=== PATIENT | male | born 1995 | race Caucasian/White ===

== ENCOUNTER 2017-06-11 21:50 | Emergency (ER) | payer OTHER ==
[~2017-06-11] VITALS: Ht 182.9 cm; Wt 102.9 kg
[2017-06-11] MEDS ORDERED: ONDANSETRON 2MG/ML, 2ML IVPush ONE (22:30)
[2017-06-11] MEDS ORDERED: SODIUM CHLORIDE 0.9% 1,000ML IVBOLUS ONE (22:30)
[2017-06-11] MEDS ORDERED: PLEASE ENTER ALLERGIES MC SCH ×2 (22:30)
[2017-06-11 22:55] LABS: HEMATOCRIT 50.8 % (39.2-51.8); HEMOGLOBIN 17.3 g/dL (13.7-18.0); WHITE BLOOD COUNT 20.6 x10^3/uL (3.4-10)
[2017-06-11 23:04] LABS: ASPARTATE AMINO TRANSFERASE 27 U/L (15-37); BLOOD UREA NITROGEN 16 mg/dL (7-18)
[2017-06-11 23:12] LABS: DIFF TOTAL CELLS COUNTED 100 CELL DIFF
[2017-06-11 23:13] LABS: VERIFY COUNTS? YES
[2017-06-11 23:16] LABS: LARGE PLATELETS 1+
[2017-06-11] MEDS ORDERED: ONDANSETRON 2MG/ML, 2ML ONE (23:29)
[2017-06-11] MEDS ORDERED: SINGULAIR (23:43)
[2017-06-11] MEDS ORDERED: RITALIN (23:44)
[2017-06-12 00:32] VITALS: BP 127/67
== END 2017-06-12 00:37 | disposition home or self-care (01) ==
LOC: ED 23:09
DX: A09 Infectious gastroenteritis and colitis, unspecified (principal); D72.828 Other elevated white blood cell count; D72.825 Bandemia
CPT/HCPCS: 36415; 80053; 83690; 85025; 96374; 99284; J2405; J7030